=== PATIENT | female | born 1970 | race African-American/Black ===

== ENCOUNTER 2023-07-12 22:58 | Emergency (ER) | payer BC ==
[~2023-07-12] VITALS: Ht 152.4 cm; Wt 54.4 kg
[2023-07-13] MEDS ORDERED: ONDANSETRON HCL/PF 4 MG/2 ML VIAL ONE (00:07)
[2023-07-13] MEDS ORDERED: MORPHINE SULFATE INJ 4 MG/ML DISP.SYRIN ONE (00:08)
[2023-07-13] MEDS: MORPHINE SULFATE INJ 2 MG/ML DISP.SYRIN IV ONE (00:08)
[2023-07-13] MEDS: ONDANSETRON HCL/PF 4 MG/2 ML VIAL IVP ONE (00:09)
[2023-07-13] MEDS: IV NS 0.9% 1,000 ML BAG IV ONE (00:20)
[2023-07-13 00:27] LABS: BASOPHILS % (AUTO) 0.3 % (0.0-2.0); EOSINOPHILS % (AUTO) 0.6 % (0.0-6.0); HEMATOCRIT 41 % (33-45); HEMOGLOBIN 13.5 g/dL (11.5-14.8); LYMPHOCYTES # (AUTO) 0.9 K/uL (0.8-4.8); LYMPHOCYTES % (AUTO) 17.1 % (20.0-44.0); MEAN CORPUSCULAR HEMOGLOBIN 31 PG (26.0-33.0); MEAN CORPUSCULAR HGB CONC 33 g/dl (31.0-36.0); MEAN CORPUSCULAR VOLUME 94 fL (82-100); MONOCYTES # (AUTO) 0.4 K/uL (0.1-1.30); MONOCYTES % (AUTO) 8.3 % (2.0-12.0); NEUTROPHILS % (AUTO) 73.7 % (43.0-81.0); PLATELET COUNT (AUTO) 159 K/uL (150-450); RED BLOOD CELL COUNT(AUTO) 4.33 MIL/uL (4.0-5.2); RED CELL DISTRIBUTION WIDTH 14.5 % (11.5-15.0); WHITE BLOOD COUNT (AUTO) 5.4 K/uL (4.3-11.0)
[2023-07-13 00:39] LABS: INR 0.97 (0.91-1.10); PROTHROMBIN TIME 10.3 SECS (9.2-11.1)
[2023-07-13 00:41] LABS: CALCIUM, SERUM 9.8 mg/dL (8.5-10.1); CARBON DIOXIDE 25 mmol/L (21-32); CHLORIDE 100 mmol/L (98-107); CREATININE 0.7 mg/dL (0.6-1.3); GLUCOSE 102 mg/dL (74-106); POTASSIUM 3.6 mmol/L (3.5-5.1); SODIUM SERUM 137 mmol/L (136-145); UREA NITROGEN, BLOOD 6 mg/dL (7-18)
[2023-07-13 00:43] LABS: APPEARANCE,URINE TURBID (CLEAR); COLOR,URINE YELLOW (YELLOW)
[2023-07-13 00:44] LABS: ADD URINE CULTURE YES; BACTERIA,URINE Moderate /HPF (None Seen); BILIRUBIN,URINE NEGATIVE (NEGATIVE); BLOOD, URINE 2+ Ery/uL (NEGATIVE); KETONES,URINE NEGATIVE (NEGATIVE); LEUKOCYTE ESTERASE ,URINE 3+ (NEGATIVE); NITRITE, URINE POSITIVE (NEGATIVE); PROTEIN,URINE NEGATIVE (NEGATIVE); SQUAMOUS EPITHELIAL CELL,UR Rare /HPF (None Seen); UGLUCOSE NEGATIVE (NEGATIVE); UROBILINOGEN,URINE 0.2 EU/dL (0.2); WBC,URINE TOO NUMEROUS TO COUN /HPF (0-3)
[2023-07-13 00:54] LABS: ALANINE AMINOTRANSFERASE 24 U/L (12-78); ALBUMIN 3.9 g/dL (3.4-5.0); ALKALINE PHOSPHATASE 122 U/L (46-116); ASPARTATE AMINOTRANSFERASE 33 U/L (15-37); BILIRUBIN,DIRECT 0.1 mg/dL (0.0-0.2); BILIRUBIN,TOTAL 0.4 mg/dL (0.2-1.0); LIPASE 34 U/L (16-77); TOTAL PROTEIN, SERUM 8.3 g/dL (6.4-8.2)
[2023-07-13] MEDS ORDERED: NITR100C6 PO (03:01)
[2023-07-13] MEDS: NITROFURANTOIN/MONOHYDRATE MACROCRYSTALS 100 MG CAPSULE PO ONE (03:06)
[2023-07-13] MEDS ORDERED: NITROFURANTOIN/MONOHYDRATE MACROCRYSTALS 100 MG CAPSULE ONE (03:06)
[2023-07-13 03:34] VITALS: BP 136/84; TEMP 97; O2SAT 100
== END 2023-07-13 03:34 | disposition home or self-care (01) ==
LOC: ER 23:24
DX: N39.0 Urinary tract infection, site not specified (principal); R10.11 Right upper quadrant pain; Z60.2 Problems related to living alone
CPT/HCPCS: 99285; 93005; 36415; 96374; 76705; 96361; 96375; 85025; 80048; 87086; 83690; 80076; 81001; 84484 ×2; 85730; J2270; J2405; J7030